=== PATIENT | male | born 1985 | race Caucasian/White ===

== ENCOUNTER 2017-07-13 12:45 | Emergency (ER) | payer BC, OTHER ==
[~2017-07-13] VITALS: Ht 182.9 cm; Wt 108.4 kg
[2017-07-13 16:58] VITALS: BP 133/72
== END 2017-07-13 17:13 | disposition home or self-care (01) ==
LOC: ER 12:45
DX: M77.9 Enthesopathy, unspecified (principal); Z76.0 Encounter for issue of repeat prescription